=== PATIENT | female | born 1985 | race Caucasian/White ===

== ENCOUNTER 2017-12-04 06:04 | Inpatient (IN) | payer OTHER ==
[~2017-12-04] VITALS: Ht 157.5 cm; Wt 65.8 kg
[~2017-12-04 06:04] MED LIST: IBUPROFEN800 MG PO; PERCOCET 325 MG1 TA2 PO; PRENATAL1 TA2 PO; TRANDATE-NORMO100 MG PO; [UNRECOGNIZED DRUG - OTHER] PO
[2017-12-04 06:51] LABS: ABSOLUTE BASOPHIL COUNT 0 /CUMM (0.0-0.2); ABSOLUTE EOSINOPHIL COUNT 0 /CUMM (0.0-0.7); ABSOLUTE GRANULOCYTE CT 5.1 /CUMM (1.4-6.5); ABSOLUTE LYMPH COUNT 1.8 /CUMM (1.2-3.4); ABSOLUTE MONOCYTE COUNT 0.5 /CUMM (0.10-0.60); BASOPHIL % 0.3 % (0.0-2.0); EOSINOPHIL % 0.3 % (0-5); MEAN CORPUSCULAR HGB 31.3 PG (27.0-31.0); MEAN CORPUSCULAR HGB CONC 34.1 G/DL (33.0-37.0); MEAN CORPUSCULAR VOLUME 91.7 FL (81.0-99.0); MEAN PLATELET VOLUME 10.5 FL (7.4-10.4); PLATELET COUNT 139 /CUMM (130-400); RBC DISTRIBUTION WIDTH 13.6 % (11.5-14.5); RED BLOOD CELL CT 3.71 /CUMM (4.20-5.40); WHITE BLOOD CELL COUNT 7.3 /CUMM (4.8-10.8)
--- NOTE | 2017-12-04 10:12 | History & Physical ---
General Information and HPI MD Statement: I have seen and personally examined CONNORYENI and documented this H&P. The patient is a 32 year old female at [39] weeks and [2] days gestation who presented with a chief complaint of [FOR REPEAT ]. Source of Information: patient Exam Limitations: no limitations History of Present Illness: 32yo, 39 2/7wks, here for elective repeat c/s. she has no complaints. den ies ctxs, no VB or LOF, reports GFM. care started at 9 wks, due to h/o preeclampsia during the 1st , pt was taking ASA 81mg daily, no other issues during the , BP WNL. 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 Last Menstrual Period: unknown Estimated Delivery Date: 12/09/2017 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 History: HTN- associated, hemmorage Past Pregnancies Past Pregnancies: Date of Delivery: 03/2014 Gestational Age: 38 4/7wks Weight: [id number] Type of Delivery: Complications: preeclampsia PPH Medical History Blood Transfusion Hx: Yes Neurological: NONE EENT: NONE Cardiovascular: NONE Respiratory: NONE Gastrointestinal: NONE Hepatic: NONE Renal: NONE Musculoskeletal: NONE Psychiatric: NONE Endocrine: NONE Blood Disorders: NONE Cancer(s): NONE 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 Home Smoking Status: Never Smoked ETOH Use: denies use Illicit Drug Use: denies illicit drug use Review of Systems Review of Systems Constitutional: Reports: no symptoms. EENTM: Reports: no symptoms. Cardiovascular: Reports: no symptoms. Respiratory: Reports: no symptoms. GI: Reports: no symptoms. Genitourinary: Reports: see HPI. Musculoskeletal: Reports: no symptoms. Skin: Reports: no symptoms. Neurological/Psychological: Reports: no symptoms. Hematologic/Endocrine: Reports: no symptoms. Immunologic/Allergic: Reports: no symptoms. All Other Systems: Reviewed and Negative Exam & Diagnostic Data Last 24 Hrs of Vital Signs/I&O Intake & Output 12/04 1600 12/04 0800 12/04 0000 Intake Total Output Total Balance Patient 65.771 kg Weight Obstetric Exam Wgt Gained During : 33 lbs Pelvimetry: adequate Dilation (cm): 0 Effacement (%): 0 Station: -3 Membranes: intact Fluid: unknown Fundal Height (cm): 39 Multiple Gestation? No Contractions: none Infant #1 - FHR Baseline: 140 Category: 1 Estimated Weight: 3000g Presentation: vertex Patient for Induction? No Physical Exam: VSS General: NAD Abdomen: gravid, soft, nontender. Ext: DCT (-) Labs Blood Type & Rh: O positive Antibody Screen: negative Hct/Hgb & Platelets #1: 11.4/38.8%,[id number] Hct/Hgb & Platelets #2: 11.3/37.5%,[id number] Rubella: immune VDRL #1: negative VDRL #2: negative HbsAg: negative HIV #1: negative HIV #2 negative 1 Hr P Group B Strep: negative Initial Ultrasound: IUP at 9 wks Anatomy Ultrasound: NL Ultrasound for EFW: [id number] at 38 wks 4 days Genetic Testing: NL Last 24 Hrs of Labs/Michael: Laboratory Tests 12/04/17 0924: Ur Random Creatinine Pending, U Random Total Protein Pending 12/04/17923: Urine Color YEL, Urine Clarity CLEAR, Urine pH 7.0, Ur Specific [place] <= 1.005 , Urine Protein NEG, Urine Ketones NEG, Urine Nitrite NEG, Urine Bilirubin NEG, Urine Urobilinogen 0.2, Ur Leukocyte Esterase NEG, Ur Microscopic EXAM NOT REQUIRED, Urine Hemoglobin NEG, Urine Glucose NEG 12/04/17 0630: Estimated GFR > 60, Uric Acid 4.5, AST 22, ALT 21, Lactate Dehydrogenase 468, CBC w Diff NO MAN DIFF REQ, RBC 3.71 L, MCV 91.7, MCH 31.3 H, MCHC 34.1, RDW 13.6, MPV 10.5 H, Gran % 69.0, Lymphocytes % 24.2, Monocytes % 6.2, Eosinophils % 0.3, Basophils % 0.3, Absolute Granulocytes 5.1, Absolute Lymphocytes 1.8, Absolute Monocytes 0.5, Absolute Eosinophils 0, Absolute Basophils 0 Microbiology 12/05 923 URINE ROUT: Urine Culture - RECD 12/04 917 URINE ROUT: Urine Culture - COLB Assessment/Plan Assessment/Plan: 32yo, 39 2/7wks prior c/s, here for repeat c/s 1. admit pt, admission labs 2. elevated BP on admision, will send PIH labs 3. will prepare for OR As Ranked By This Provider Problem List: 1. Core Measures Venous Thromboembolism VTE Risk Factors / No Mechanical VTE Prophylaxis d/t LowRisk-No Interven Req'd No VTE Pharm Prophylaxis d/t LowRisk-No Interven Req'd Attending MD Review Statement Attending Statement Attending MD Statement: examined this patient, discussed with family, discussed w/nursing
--- NOTE | 2017-12-04 10:23 | Operative Report ---
Operative/Inv Procedure Report Surgery Date: 12/04/17 Name of Procedure: Repeat low transverse section Via Pfannenstiel Pre-Operative Diagnosis: G2 para 1 at 39 weeks 2 days intrauterine , prior section Post-Operative Diagnosis: Same Estimated Blood Loss: 400ML Surgeon/Dosier Operator: Bennie Sandhu MD, Dr. Anesthesia: SPINAL IV Fluids: 1500 mL lactated Ringer's Urine Output: 300 mL of clear urine at the end of procedure Complications: None Condition: Stable Operative Indication: 32-year-old, G2 para 1, at 39 weeks 2 days intrauterine , prior section, patient requested elective repeat section Operative/Procedure Note Note: The patient was taken to the operating room where spinal anesthesia was obtained without difficulty. She was then prepared and draped in the normal sterile fashion in the dorsosupine position with a leftward tilt. A Pfannenstiel skin incision was then made with a scalpel and carried through to the underlying layer of the fascia with the Bovie. The fascia was incised in the midline and incision extended laterally. The inferior aspect of this fascial incision was then grasped with Mary clamps, elevated, and the underlying rectus muscle dissected off with Shukla scissors. Attention was then turned to the superior aspect of this incision which, in a similar fashion, was grasped, tented up with the Mary clamps, and the rectus muscle dissected off with Shukla scissors. The rectus muscle was then in the midline and peritoneum identified and entered bluntly. The peritoneal incision was then extended superiorly and inferiorly with good visualization of the bladder. The bladder blade was then inserted and the vesicouterine peritoneum identified, grasped with the pickups in entered sharply with Metzenbaum scissors. The incision was then extended laterally and the bladder flap created digitally. The bladder blade was then reinserted and the lower uterine segment incised in transverse fashion with the scalpel. The uterine incision was then extended laterally, the bladder blade was removed and the head delivered atraumatically. The nose and mouth was suctioned with a suction bulb , and the cord clamped and cut. was handed off to the waiting pediatricians. The placenta was then removed manually, the uterus exteriorized, and clear of all clots and debris. The uterine incision was repaired with 0 Vicryl in a running locked fashion. A second layer of the same suture was used to obtain excellent hemostasis. Additional suture was used to achieve hemostasis at the right corner of the uterine incision. Uterus returned to the abdomen. The gutters were cleared of all clots, 1 g Kerrie was placed at the uterine incision line. And the peritoneum closed with 3-0 Vicryl. The rectus muscle was reapproximated with 2-0 Vicryl. The fascia was reapproximated with 0 Vicryl in a running fashion. Skin was closed with 4-0 Monocryl subcuticularly. The patient tolerated the procedure well. Sponge, lap and needle counts were correct 2. Patient was taken to the recovery room in stable condition. Findings: Live female infant in cephalic presentation, SALO position, weighing 2935g. 9 and 9. Pediatrics present at delivery. Normal uterus, tubes and ovaries.
[2017-12-05 01:05] VITALS: BP 120/80
[2017-12-05 08:49] LABS: ABSOLUTE BASOPHIL COUNT 0 /CUMM (0.0-0.2); ABSOLUTE EOSINOPHIL COUNT 0 /CUMM (0.0-0.7); ABSOLUTE GRANULOCYTE CT 4.7 /CUMM (1.4-6.5); ABSOLUTE LYMPH COUNT 1.9 /CUMM (1.2-3.4); ABSOLUTE MONOCYTE COUNT 0.4 /CUMM (0.10-0.60); BASOPHIL % 0.3 % (0.0-2.0); EOSINOPHIL % 0.4 % (0-5); GRANULOCYTE % 65.9 % (42.2-75.2); MEAN CORPUSCULAR HGB 31.4 PG (27.0-31.0); MEAN CORPUSCULAR HGB CONC 33.7 G/DL (33.0-37.0); MEAN PLATELET VOLUME 10.9 FL (7.4-10.4); PLATELET COUNT 117 /CUMM (130-400); RBC DISTRIBUTION WIDTH 13.7 % (11.5-14.5); RED BLOOD CELL CT 3.04 /CUMM (4.20-5.40); WHITE BLOOD CELL COUNT 7.1 /CUMM (4.8-10.8)
[2017-12-05 09:01] LABS: HEMATOCRIT 28.3 % (37-47)
--- NOTE | 2017-12-05 09:09 | PN- OBGYN ---
Surgical Brief Attending Note Brief Attending Note: POD 1 OOB, showered already by 10am. Good pain control with PO meds. Tolerating all POs. Voiding without difficulty. , babylatching well. afebrile, VS normal, UOP normal Lips - pink/moist Abd - soft, NT Fundus - firm, NT Incision - C/D/I Perineum - intact, scant lochia rubra Extr - 2+ edema bilat., DTRs +1/4, no clonus Labs - H/H from 11/34% to 9.5/28% A: recovering well s/p repeat C/S postop acute blood loss anemia, no further blood loss at this time P: routine postop care repeat CBC in am h/o pre-eclampsia last , this time BPs normal restart PNV and iron tabs after 1st BM
--- NOTE | 2017-12-06 09:33 | PN- Post Delivery/GYN ---
Subjective Subjective: feeling well may want to go home early Review of Systems Constitutional: Reports: no symptoms. Denies: chills, fever. EENTM: Denies: blurred vision, double vision, visual changes. Cardiovascular: Denies: chest pain. Respiratory: Denies: cough. Gastrointestinal: Denies: abdominal pain, diarrhea, nausea, vomiting. Genitourinary: Denies: frequency. Neurological/Psychological: Denies: anxiety, depressed. Objective Last 24 Hrs of Vital Signs/I&O vss Physical Exam General Appearance Alert, Oriented X3, Cooperative, No Acute Distress Skin No Rashes HEENT PERRLA Cardiovascular Regular Rate Lungs Clear to Auscultation Abdomen Soft, incision clean and dry Assessment/Plan Assessment/Plan POD #2 vss afebrile plan consider early discharge Problem List: 1. Attending MD Review Statement Attending Statement Attending MD Statement: examined this patient, discussed with nursing
[2017-12-06 11:20] LABS: ABSOLUTE BASOPHIL COUNT 0 /CUMM (0.0-0.2); ABSOLUTE EOSINOPHIL COUNT 0 /CUMM (0.0-0.7); ABSOLUTE GRANULOCYTE CT 5.5 /CUMM (1.4-6.5); ABSOLUTE LYMPH COUNT 1.3 /CUMM (1.2-3.4); ABSOLUTE MONOCYTE COUNT 0.3 /CUMM (0.10-0.60); BASOPHIL % 0.2 % (0.0-2.0); EOSINOPHIL % 0.2 % (0-5); GRANULOCYTE % 76.4 % (42.2-75.2); HEMATOCRIT 31.8 % (37-47); MEAN CORPUSCULAR HGB 31.8 PG (27.0-31.0); MEAN CORPUSCULAR HGB CONC 34.3 G/DL (33.0-37.0); MEAN CORPUSCULAR VOLUME 92.8 FL (81.0-99.0); MEAN PLATELET VOLUME 9.2 FL (7.4-10.4); PLATELET COUNT 151 /CUMM (130-400); RBC DISTRIBUTION WIDTH 13.9 % (11.5-14.5); RED BLOOD CELL CT 3.43 /CUMM (4.20-5.40); WHITE BLOOD CELL COUNT 7.2 /CUMM (4.8-10.8)
[2017-12-07] MEDS ORDERED: IBUPROFEN800 M1 PO (09:49)
[2017-12-07] MEDS ORDERED: PERCOCET 5-3251 EACH PO (09:49)
--- NOTE | 2017-12-07 09:59 | PN- Post Delivery/GYN ---
Subjective Subjective: feeling well Review of Systems Constitutional: Reports: no symptoms. EENTM: Denies: blurred vision, double vision, visual changes. Cardiovascular: Denies: edema. Neurological/Psychological: Denies: anxiety, depressed. Objective Last 24 Hrs of Vital Signs/I&O vss Bp mildly elevated will f/u Saturday off meds Physical Exam General Appearance Alert, Oriented X3, Cooperative, No Acute Distress Cardiovascular Regular Rate Lungs Clear to Auscultation Current Medications: Current Medications Sig/Sepideh Start time Last Medication Dose Route Stop Time Status Admin Acetaminophen 650 MG Q4P PRN 12/04 929 AC PO Bisacodyl 10 MG DAILY NEEDED PRN 12/04 929 AC NV Docusate Sodium 100 MG .STK-MED ONE 12/06 2220 DC PO 12/06 2221 Docusate Sodium 100 MG AT BEDTIME PRN 12/04 929 AC 12/06 PO 2230 Ibuprofen 800 MG .STK-MED ONE 12/06 2220 DC PO 12/06 2221 Ibuprofen 800 MG .STK-MED ONE 12/06 1547 DC PO 12/06 1548 Ibuprofen 800 MG Q6P PRN 12/04 929 AC 12/07 PO 0653 Oxycodone/ 1 TAB Q4P PRN 12/04 929 AC 12/07 Acetaminophen PO 0653 Oxycodone/ 2 TAB Q4P PRN 12/04 09 AC 12/06 Acetaminophen PO 0729 Last 24 Hrs of Labs/Michael: Laboratory Tests 12/06/17 1105: Urine Color YEL, Urine Clarity CLEAR, Urine pH 6.5, Ur Specific [place] 1.020, Urine Protein TRACE H, Urine Ketones NEG, Urine Nitrite NEG, Urine Bilirubin NEG, Urine Urobilinogen 0.2, Ur Leukocyte Esterase NEG, Ur Microscopic SEDIMENT EXAMINED, Urine RBC 25-50 H, Urine WBC 1-3 H, Ur Epithelial Cells FEW, Urine Hemoglobin LARGE H, Urine Glucose NEG 12/06/17 1055: Estimated GFR > 60, Uric Acid 4.2, AST 24, ALT 25, Lactate Dehydrogenase 552, CBC w Diff NO MAN DIFF REQ, RBC 3.43 L, MCV 92.8, MCH 31.8 H, MCHC 34.3, RDW 13.9, MPV 9.2, Gran % 76.4 H, Lymphocytes % 18.5 L, Monocytes % 4.7, Eosinophils % 0.2, Basophils % 0.2, Absolute Granulocytes 5.5, Absolute Lymphocytes 1.3, Absolute Monocytes 0.3, Absolute Eosinophils 0, Absolute Basophils 0 Assessment/Plan Assessment/Plan POD #3 vss afebrile plan d/c home today Problem List: 1. PIH ( induced hypertension) Attending MD Review Statement Attending Statement Attending MD Statement: examined this patient, discussed with family, discussed with nursing
--- NOTE | 2017-12-09 09:43 | Discharge Summary ---
Visit Information Visit Dates Admission Date: 12/04/17 Discharge Date: 12/07/17 Hospital Course Course Attending Physician: Bennie Sandhu MD Primary Care Physician: Zina Mercado DO [facility] Course: 32-year-old , term , prior section, she was admitted for elective repeat section on December 04, 2017. Patient underwent repeat low transverse section without complications. During the hospital stay, patient remained in stable condition. She tolerates diet, void without difficulties, ambulating well, pain controlled with pain medication. Vitals are stable, on exam, abdomen soft, nontender, uterus firm, fundus below umbilicus, incision dry clean and intact. She was discharged home on December 07, 2017 with instructions given. Complications: None Allergies: Coded Allergies: No Known Allergies (12/04/17) Significant Procedures: Repeat low transverse section Via Pfannenstiel Disposition Summary Disposition Principal Diagnosis: G2 para 1, term , prior section Additional Diagnosis: Anemia Discharge Disposition: home or self care Discharge Instructions General Discharge Information Code Status: Full Code Patient's Diet: Regular Patient's Activity: As tolerated Follow-Up Instructions/Appts: Pelvic rest and no heavy lifting for 6-8 weeks Follow-up in the office in 2 weeks and 6 weeks Medications at Discharge Discharge Medications: Stop taking the following medications: PNV95/FERROUS FUMARATE/FA ( Formula Tablet) 28 MG IRON-800 MCG TABLET ORAL DAILY Qty = 30 Labetalol (Trandate-Normodyne 100MG Tab) 100 MG TABLET ORAL TWICE DAILY Qty = 30 Continue taking these medications: Ibuprofen (Ibuprofen) 800 MG TABLET 800 Milligram ORAL EVERY SIX HOURS NEEDED as needed for PAIN SCALE 4-6 Qty = 30 Comments: Last Taken:03/26/14 Time:0750 OXYCODONE HCL/ACETAMINOPHEN (Percocet 5-325 MG Tablet) 325 MG/5 MG TAB 1 Tablet ORAL EVERY 4 HOURS NEEDED as needed for PAIN SCALE 7-8 Qty = 30 Comments: Last Taken:03/26/14 Time:0750 IRON,CARB/FA#6/MV, MIN NO.40 (Corvite Fe Tablet) 150 MG-1MG TABLET 1 Tablet ORAL DAILY Qty = 90 Start taking the following new medications: Ibuprofen (Ibuprofen) 800 MG TABLET 800 Milligram ORAL EVERY SIX HOURS NEEDED as needed for UTERINE CRAMPING Qty = 90 No Refills Comments: Last Taken:12/07/17 Time:0653 Oxycodone HCl/Acetaminophen (Percocet 5-325 MG Tablet) 5 MG-325 MG TABLET 2 Tablet ORAL EVERY 4 HOURS NEEDED as needed for PAIN SCALE 7-10 (SEVERE) Qty = 60 No Refills Comments: Last Taken:12/07/17 Time:0653 Copies To: Bennie Sandhu MD Attending MD Review Statement Documenting Attending: Bennie Sandhu MD
== END 2017-12-07 11:40 | DRG 765 ==
LOC: GNO 06:04
PROVIDERS: Obstetrics & Gynecology
PROC: 10D00Z1 Extraction of Products of Conception, Low, Open Approach (ICD-10-PCS; principal; 2017-12-04)
DX: O34.211 Maternal care for low transverse scar from previous cesarean delivery (principal); D62 Acute posthemorrhagic anemia; N85.8 Other specified noninflammatory disorders of uterus; Z3A.39 39 weeks gestation of pregnancy; O99.02 Anemia complicating childbirth; O13.4 Gestational [pregnancy-induced] hypertension without significant proteinuria, complicating childbirth; Z37.0 Single live birth
CPT/HCPCS: GNOS; 36415; 81001; 81003; 82570; 87086; J0690; J1885; J7120